=== PATIENT | female | born 1950 | race Caucasian/White ===

== ENCOUNTER 2023-07-17 09:36 | Outpatient (CLI) | payer MEDICARE, SELFPAY | END 2023-07-17 09:37 | disposition home or self-care (01) | LOC: KYNREF 09:37 | PROVIDERS: PCP Nurse Practitioner Family; Visit Provider Nurse Practitioner Family | DX: N39.0 Urinary tract infection, site not specified (principal) | CPT/HCPCS: 81015; 87086; 87186 ==

== ENCOUNTER 2023-07-31 08:33 | Outpatient (CLI) | payer MEDICARE, SELFPAY | END 2023-07-31 08:34 | disposition home or self-care (01) | PROVIDERS: PCP Nurse Practitioner Family; Visit Provider Nurse Practitioner Family | DX: E78.5 Hyperlipidemia, unspecified (principal); Z13.0 Encounter for screening for diseases of the blood and blood-forming organs and certain disorders involving the immune mechanism; Z13.6 Encounter for screening for cardiovascular disorders; Z13.228 Encounter for screening for other metabolic disorders | CPT/HCPCS: 80053; 80061; 85025 ==

== ENCOUNTER 2024-04-28 17:59 | Emergency (ER) | payer MEDICARE, SELFPAY ==
[2024-04-28 18:03] VITALS: BP 161/91; PULSE 84; RESP 18; TEMP 36.9; O2SAT 95; BMI 29.8
--- NOTE | 2024-04-28 18:13 | ED_ITS ---
HPI - General Adult General Chief complaint: Abdominal Pain Stated complaint: Lower R abdominal pain Time Seen by Provider: 04/28/24 18:00 History of Present Illness HPI narrative: 4 days ago, woke up in the middle of the night with patient in the RLQ. taken Motrin and ice pain to area improved. went to the BR had a BM. this am pain returned and pain was a 7.5/10 scale. taken Motrin with ice and heat on area again with pain tenderness in the RLQ. concerned about appy. denies fever and not vomiting. has brusitis in the right hip and pain is inside abdomen. + 73-year-old woman presenting to the emergency department with dense concern of intermittent right lower abdominal pain. Sounds like it was sharp and cramping. 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 Some hours later had a small bowel movement this morning but did not affect the pain. She says she is feeling little silly at this point. Is not actually having pain. She just thought he should get checked out. She is worried about appendicitis. Has had a hysterectomy. Has been treating a bursitis in the right hip and it sounds like that is improving. Admittedly about a week ago was concerned that might be becoming constipated. She did start some Metamucil and some other di etary changes to help. She had a number of good bowel movements. Over the last couple of days has only had 2 very small bowel movements. No dysuria frequency urgency. Related Data Home Medications ?Medication ?Instructions ?Recorded ?Confirmed coQ10 (liposomal ubiquinol) 200 mg PO DAILY 04/28/24 04/28/24 Previous Rx's ?Medication ?Instructions ?Recorded albuterol sulfate 90 mcg/actuation 2 puff inhalation Q4-6H PRN 07/17/23 aerosol inhaler shortness of breath or wheezing #8.5 grams pravastatin 40 mg tablet 40 mg PO QHS #90 tabs 08/02/23 Allergies Allergy/AdvReac Type Severity Reaction Status Date / Time atorvastatin [From Lipitor] Allergy Mild Verified 04/28/24 18:09 Review of Systems Status of ROS: Reports: 6 or more systems reviewed and unremarkable except as noted in History and below [facility] Surgical History History of partial hysterectomy ?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 2 children, 6 grandchildren. Smoker, 15 cigarettes/day. Alcohol, 2 to 3 per week. No illicit drug. No formal exercise. What is your current living situation?: I presently have a place to live Problems where you live: no known problems In the past 12 months, utilities in danger of being shut off: no In past 12 months, lack of transportation kept you from medical appts, meetings, work, or getting things needed for daily living: no In the past 12 mos, have been you worried that your food would run out before you had money to buy more?: never true In the past 12 mos, the food you bought just didn't last and you didn't have money to buy more?: never true Smoking Status: Current every day smoker How often do you have a drink containing alcohol: monthly or less AUDIT-C Alcohol total score: 1 Non-prescribed substance use: denies use How often does anyone, including family, friends and others, physically hurt you : never How often does anyone, including family, friends and others, insult or talk down to you: never How often does anyone, including family, friends and others, threaten you with harm: never How often does anyone, including family, friends and others, scream or curse at you: never Little interest or pleasure in doing things: several days Feeling down, depressed, or hopeless: several days Exam Narrative: Exam Narrative: Pleasant. Good energy. Cranial nerves 2-12 intact. Transitions easily. Skin is warm and dry. Abdomen is soft with normal bowel sounds. No masses appreciated. Is nontender including no flank pain. Lower extremities are well perfused without edema. Generally well perfused. Breathing easily. Lungs are clear. Heart in regular rate and rhythm. Const: Vital Signs, click to edit/add: Vital Signs - 24 hr 04/28/24 18:03 Temperature 98.4 F Pulse Rate [Pulse Oximeter] 84 Respiratory Rate 18 Blood Pressure [Ri ght Upper Arm] 161/91 H Pulse Oximetry 95 Oxygen Delivery Me thod Room Air Documenting provider has reviewed patient's vital signs: yes Course Vital Signs Vital signs: Initial Vital Signs Temperature 98.4 F 04/28/24 18:03 Temperature Source Temporal Artery Scan 04/28/24 18:03 Pulse Rate 84 04/28/24 18:03 Respiratory Rate 18 04/28/24 18:03 Blood Pressure 161/91 H 04/28/24 18:03 Blood Pressure Mean 114 H 04/28/24 18:03 Blood Pressure Position Sitting 04/28/24 18:03 Pulse Oximetry 95 04/28/24 18:03 Oxygen Delivery Method Room Air 04/28/24 18:03 Vital Signs Temperature 98.4 F 04/28/24 18:03 Pulse Rate 84 04/28/24 18:03 Respiratory Rate 18 04/28/24 18:03 Blood Pressure 161/91 H 04/28/24 18:03 Pulse Oximetry 95 04/28/24 18:03 Oxygen Delivery Method Room Air 04/28/24 18:03 Temperature 98.4 F 04/28/24 18:03 Pulse Rate 84 04/28/24 18:03 Respiratory Rate 18 04/28/24 18:03 Blood Pressure 161/91 H 04/28/24 18:03 Pulse Oximetry 95 04/28/24 18:03 Oxygen Delivery Method Room Air 04/28/24 18:03 Medical Decision Making MDM Narrative Medical decision making narrative: I think story is unusual for concern of appendicitis. I think constipation most likely diagnosis. Doubtful torsion given absent uterus. Possible ovarian cyst but again without any pain at this point. Diverticular disease/diverticulitis possibility but unusual location and resolution of pain at this point. Would screen for urinary tract infection. Considering that this has been present intermittently had resolved I would suspect more of gas pains or intestinal colic possibly related to constipation. Vascular disruption? Bowel perforation? Diverticulitis? Does seem anxious to report duration of time or possibly leave if nothing more concerning. I suggested screening with CBC and abdominal x-ray. Urinalysis as potential evidence of other renal disease that needs to be sorted. Does not appear to need anything for pain at this time. Further information is that a week ago had been forming very small pellet-like stools. The last to again have noted have been rather small and hard. By my read Abdominal x-ray does show some larger right-sided stool volume in the colon. No unusual air-fluid levels. CBCs reassuring. CRP pending at this time. Urinalysis unremarkable I do think that constipation and associated colic is most likely explanation for her pain. Incidentally has not yet had a colonoscopy. See patient discharge plan for further discussion Medical Records Medical records reviewed: Yes I reviewed the patient's medical records Lab Data Lab results reviewed: Yes I reviewed the patient's lab results Labs: Lab Results 04/28/24 04/28/24 Range/Units 18:25 18:40 WBC 10.49 (4.50-11.00) K/uL RBC 5.13 (4.00-5.20) m/uL Hgb 15.3 (12.0-16.0) gm/dL Hct 45.8 (33.0-51.0) % MCV 89 (80-100) fL MCH 30 (26-34) pg MCHC 33 (32-36) gm/dL RDW Coeff of Nathalia 13.6 (11.5-15.5) % Plt Count 291 (140-440) K/uL Neut % (Auto) 43.0 (42.0-72.0) % Lymph % (Auto) 45.0 H (20-44) % [place] % (Auto) 8.1 (0.0-11.0) % Eos % (Auto) 3.1 (0.0-7.0) % Baso % (Auto) 0.5 (0.0-3.0) % Neut # (Auto) 4.52 (1.7-7.0) K/uL Lymph # (Auto) 4.70 H (0.90-2.90) K/uL [place] # (Auto) 0.80 (0.00-0.90) K/UL Eos # (Auto) 0.32 (0.00-0.50) K/uL Baso # (Auto) 0.05 (0.00-0.30) K/uL Abs Immat Gran (auto) 0.03 (0.00-0.30) K/uL Imm/Tot Granulo (auto) 0.3 % Urine Color Yellow (Yellow) Urine Appearance Clear (Clear) Urine pH 6.0 (5.0-8.5) Ur Specific [place] 1.010 (1.000-1.030) Urine Protein Negative (Negative) Urine Glucose (UA) Negative (Negative) Urine Ketones Negative (Negative) Urine Blood Negative (Negative) Urine Nitrite Negative (Negative) Urine Bilirubin Negative (Negative) Urine Urobilinogen 0.2 (0.2-1.0) Ur Leukocyte Esterase Negative (Negative) Urine RBC 0-2 (0-2) Urine WBC 0-2 (0-5) Ur Squamous Epith Cells Few (None-Few) Urine Bacteria None (None) Discharge Plan Discharge Clinical Impression: Colicky RLQ abdominal pain, Constipation Patient Disposition: Home, Self-Care Condition: Stable Instructions: Abdominal Pain (ED) Additional Instructions: As I said I am reassured by your exam here today. I would picker tender helper a couple of enemas. If you are having hard, well formed stool, place an enema and repeat in an hour if have not had a good result. I would follow this also with drinking a bottle of magnesium citrate. This can be diluted in liquid of your choice. Repeat this next day if no significant result. I would also continue with MiraLax equivalent dosing it today. Each dose in at least 8 oz of liquid. You can take up to 3 doses perhaps in a day and adjust to stool consistency. I would take this polyethylene glycol over the next week maybe 2, again adjusting to stool consistency. Generally probably want to be drinking 2-3 L of water daily and half of your plate should be vegetables. If pain escalating and persistent, developed fever, repeated vomiting, please be seen. Yes. A colonoscopy is probably a good idea for everyone after a certain age. Activity Level: No Restrictions Discharge Diet: Regular Prescriptions: No Action albuterol sulfate 90 mcg/actuation HFA aerosol inhaler 2 puff inhalation Q4-6H PRN (Reason: shortness of breath or wheezing) Qty: 8.5 6RF coQ10 (liposomal ubiquinol) 200 mg PO DAILY pravastatin 40 mg tablet 40 mg PO QHS Qty: 90 3RF Follow Up/Referrals: Vicky Valdovinos, VISION SPECIALIST, [employer] [Primary Care Provider] - Stand Alone Forms: [employer] Info Instructions
--- NOTE | 2024-04-28 18:25 | CRLHL7_ITS ---
For Patients: As a result of the Cures Act, medical imaging exams and procedure reports are released immediately into your electronic medical record. You may view this report before your referring provider. If you have questions, please contact your health care provider. INDICATION: Right lower quadrant abdominal pain TECHNIQUE: Abdomen Pelvis radiograph 3 views COMPARISON: None FINDINGS: The sensitivity and specificity of the exam are moderately limited by the patient`s body habitus. Bowel: The bowel gas pattern is normal without evidence of bowel obstruction. Soft tissue: No evidence of pneumoperitoneum present. No suspicious calcifications noted. Bone: Unremarkable for age. Miscellaneous: The patient is status post hysterectomy. IMPRESSION: 1. Unremarkable appearance of the visualized abdomen. Dictated by: Bairon Alvarenga MD @ 04/28/2024 19:34:08 (Electronically Signed)
[2024-04-28 18:35] LABS: Appearance Urine Clear (Clear); Bilirubin Urine Negative (Negative); Blood Urine Negative (Negative); Color Urine Yellow (Yellow); Glucose Urine Negative (Negative); Ketones Urine Negative (Negative); Leukocyte Esterase Urine Negative (Negative); Nitrite Urine Negative (Negative); Protein Urine Negative (Negative); Urobilinogen Urine 0.2 (0.2-1.0)
[2024-04-28 18:50] LABS: Basophils Absolute Auto 0.05 K/uL (0.00-0.30); Basophils Percent Auto 0.5 % (0.0-3.0); Eosinophils Absolute Auto 0.32 K/uL (0.00-0.50); Eosinophils Percent Auto 3.1 % (0.0-7.0); Hematocrit 45.8 % (33.0-51.0); Hemoglobin* 15.3 gm/dL (12.0-16.0); Immature Granulocytes Abs Auto 0.03 K/uL (0.00-0.30); Immature Granulocytes Pct Auto 0.3 %; Mean Corpuscular HGB Conc 33 gm/dL (32-36); Mean Corpuscular Hemoglobin 30 pg (26-34); Mean Corpuscular Volume 89 fL (80-100); Monocytes Percent Auto 8.1 % (0.0-11.0); Neutrophils Absolute Auto 4.52 K/uL (1.7-7.0); Platelet Count* 291 K/uL (140-440); RDW Coefficient of Variation % 13.6 % (11.5-15.5); Red Blood Count 5.13 m/uL (4.00-5.20); White Blood Count* 10.49 K/uL (4.50-11.00)
[2024-04-28 18:54] LABS: Slide Review Reflex No
[2024-04-28 19:10] LABS: RBC Urine 0-2 (0-2); Squamous Epithelial Cell Urine Few (None-Few); WBC Urine 0-2 (0-5)
[2024-04-28 19:29] LABS: C Reactive Protein* < 0.5 mg/dL (0.5-1.0)
== END 2024-04-28 19:34 | disposition home or self-care (01) ==
PROVIDERS: Emergency Provider Family Medicine; PCP Nurse Practitioner Family
DX: R10.31 Right lower quadrant pain (principal); K59.00 Constipation, unspecified
CPT/HCPCS: 36415; 74019; 81001; 85025; 86140; 99284

== ENCOUNTER 2024-08-04 09:07 | Outpatient (CLI) | payer MEDICARE, SELFPAY | END 2024-08-04 09:08 | disposition home or self-care (01) | PROVIDERS: PCP Nurse Practitioner Family; Visit Provider Nurse Practitioner Family | DX: Z00.00 Encounter for general adult medical examination without abnormal findings (principal); E78.5 Hyperlipidemia, unspecified; Z13.228 Encounter for screening for other metabolic disorders; Z13.0 Encounter for screening for diseases of the blood and blood-forming organs and certain disorders involving the immune mechanism; Z13.1 Encounter for screening for diabetes mellitus | CPT/HCPCS: 80053; 80061; 85025 ==

== ENCOUNTER 2024-08-25 12:30 | Outpatient (CLI) | payer MEDICARE, SELFPAY ==
--- NOTE | 2024-08-25 13:00 | CRLHL7_ITS ---
For Patients: As a result of the Century Cures Act, medical imaging exams and procedure reports are released immediately into your electronic medical record. You may view this report before your referring provider. If you have questions, please contact your health care provider. INDICATION: Lung cancer screening. TECHNIQUE: Noncontrast CT images of the chest. COMPARISON: None. FINDINGS: Solid 2 mm nodule right apex (series 3 image 34). Solid 5 mm nodule right middle lobe (series 2 image 87). No focal consolidation, pleural effusion, or pneumothorax. Mild scarring/atelectasis right middle and left lower lobes. Heart size is normal. No pericardial effusion. Coronary artery atherosclerotic calcifications. No mediastinal or hilar lymphadenopathy. Cholelithiasis. Multilevel thoracic spondylosis. No aggressive osseous lesions. IMPRESSION: Small pulmonary nodules. Lung rads category 2, benign. Continue annual screening with low-dose chest CT in 12 months. Please note that all CT scans at this facility use dose modulation, iterative reconstruction, and/or weight-based dosing when appropriate to reduce radiation dose to as low as reasonably achievable. Dictated by Ant Pemberton MD @ 08/25/2024 4:22:44 PM (Electronically Signed)
== END 2024-08-25 12:31 | disposition home or self-care (01) ==
PROVIDERS: PCP Nurse Practitioner Family; Visit Provider Nurse Practitioner Family
DX: Z12.2 Encounter for screening for malignant neoplasm of respiratory organs (principal); R91.8 Other nonspecific abnormal finding of lung field; F17.210 Nicotine dependence, cigarettes, uncomplicated
CPT/HCPCS: 71271

== ENCOUNTER 2024-11-04 09:54 | Outpatient (CLI) | payer MEDICARE, SELFPAY | END 2024-11-04 09:55 | disposition home or self-care (01) | PROVIDERS: PCP Nurse Practitioner Family; Visit Provider Nurse Practitioner Family | DX: R07.89 Other chest pain (principal); R53.83 Other fatigue | CPT/HCPCS: 84484; 85025 ==

== ENCOUNTER 2025-02-23 12:41 | Outpatient (CLI) | payer MEDICARE, SELFPAY | END 2025-02-23 12:42 | disposition home or self-care (01) | PROVIDERS: PCP Nurse Practitioner Family; Visit Provider Nurse Practitioner Family | DX: E83.52 Hypercalcemia (principal) | CPT/HCPCS: 82310 ==

== ENCOUNTER 2025-08-06 11:33 | Outpatient (CLI) | payer MEDICARE, SELFPAY | END 2025-08-06 11:34 | disposition home or self-care (01) | PROVIDERS: PCP Nurse Practitioner Family; Visit Provider Nurse Practitioner Family | DX: Z00.00 Encounter for general adult medical examination without abnormal findings (principal); E78.5 Hyperlipidemia, unspecified | CPT/HCPCS: 80053; 80061; 85025 ==